=== PATIENT | male | born 1990 | race Caucasian/White ===

== ENCOUNTER 2017-06-11 16:15 | Emergency (ER) | payer OTHER ==
[~2017-06-11] VITALS: Ht 180.3 cm; Wt 81.8 kg
[2017-06-11] MEDS ORDERED: KETOROLAC 60 MG/2 ML VIAL (J1885) IM ONE (17:45)
[2017-06-11] MEDS ORDERED: NAPR500T PO (18:22)
[2017-06-11 18:34] VITALS: BP 133/71
--- NOTE | 2017-06-11 20:40 | REP ---
LEFT FOOT, TWO VIEWS: There is no evidence of an acute fracture, dislocation or intrinsic bone disease. IMPRESSION: No fracture or dislocation. Signed by Reyes Villalba MD 06/12/2017 04:38 P
--- NOTE | 2017-06-11 20:40 | REP ---
LEFT ANKLE, FOUR VIEWS: There is no evidence of an acute fracture, dislocation or intrinsic bone disease. The ankle mortise is anatomic. IMPRESSION: No fracture or dislocation. Signed by Reyes Villalba MD 06/12/2017 04:38 P
== END 2017-06-11 18:38 | disposition home or self-care (01) ==
LOC: M ED 16:15
DX: S93.402A Sprain of unspecified ligament of left ankle, initial encounter (principal); S93.602A Unspecified sprain of left foot, initial encounter; X50.1XXA Overexertion from prolonged static or awkward postures, initial encounter; Y92.89 Other specified places as the place of occurrence of the external cause; Y93.01 Activity, walking, marching and hiking; Y99.1 Military activity
CPT/HCPCS: 73610; 73620; 96372; 99283; J1885